=== PATIENT | female | born 1945 | race Caucasian/White ===

== ENCOUNTER 2017-07-20 12:18 | Outpatient (CLI) | payer MEDICARE | END 2017-07-20 12:19 | disposition home or self-care (01) | LOC: BICMAMMO 12:18 | PROVIDERS: ATTEND Internal Medicine | DX: Z12.31 Encounter for screening mammogram for malignant neoplasm of breast (principal); R92.1 Mammographic calcification found on diagnostic imaging of breast; Z80.3 Family history of malignant neoplasm of breast | CPT/HCPCS: 77063; 77067 ==

== ENCOUNTER 2017-07-28 14:05 | Outpatient (CLI) | payer MEDICARE | END 2017-07-28 14:06 | disposition home or self-care (01) | LOC: BICMAMMO 14:05 | PROVIDERS: ATTEND Internal Medicine | DX: R92.1 Mammographic calcification found on diagnostic imaging of breast (principal); Z80.3 Family history of malignant neoplasm of breast | CPT/HCPCS: 77065; G0279 ==

== ENCOUNTER → 2017-08-04 | Day surgery (SDC) | payer MEDICARE ==
--- NOTE | 2017-08-04 11:10 | MMO ---
LEFT BREAST STEREOTACTIC BIOPSY: HISTORY: Left breast calcifications. COMPARISON: None. FINDINGS: Successful left breast stereotactic biopsy. Calcifications are present in the biopsy sample. A post biopsy clip was placed and appears to be appropriately positioned on stereotactic images. Post biop sy two view left breast mammogram demonstrates post biopsy changes and appropriate position of the cl ip. TECHNIQUE: Consent obtained for left breast stereotactic biopsy. The patient was placed in the prone position o n the stereotactic table. Under CC compression, the calcifications were identified. The breast was prepped and draped in a sterile fashion. Lidocaine 1% buffered with sodium bicarbonate was used for local anesthesia. A small dermatotomy was made. Needle position was confirmed pre and post firing. A stereotactic biopsy was performed. A total of six 10 gauge core biopsies were obtained in a 360 d egree fashion. The specimen was radiographed. Calcifications were present. A clip was placed. The clip was documented to be outside the needle. Manual compression was used to achieve hemostasis. T he patient tolerated the procedure well. No immediate or post procedure complications. Post biopsy mammogram was performed and demonstrated appropriate clip position. IMPRESSION: Successful left breast stereotactic biopsy. POS: [facility]
== END ==
LOC: MAMMO 07:34
PROVIDERS: ATTEND Internal Medicine
PROC: 0HBU3ZX Excision of Left Breast, Percutaneous Approach, Diagnostic (ICD-10-PCS; principal; 2017-08-04)
DX: D24.2 Benign neoplasm of left breast (principal)
CPT/HCPCS: 19081; 76098; 88305

== ENCOUNTER 2018-02-02 13:03 | Outpatient (CLI) | payer MEDICARE ==
--- NOTE | 2018-02-02 14:49 | RAD ---
PA AND LATERAL CHEST: History: Cough. FINDINGS: Comparison is made with exam of 02-21-14. The heart size is normal. No focal areas of consolidation, pneumothorax, or pleural effusion is seen. There is mild scarring of the lung bases. 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 IMPRESSION: No acute process. POS: [facility]
== END 2018-02-02 13:04 | disposition home or self-care (01) ==
LOC: BICRAD 13:03
PROVIDERS: ATTEND Allergy & Immunology
DX: R05 Cough (principal)
CPT/HCPCS: 71046

== ENCOUNTER 2018-08-26 13:17 | Outpatient (CLI) | payer MEDICARE ==
--- NOTE | 2018-08-26 14:00 | MMO ---
Bilateral MAMMO Bilat Screen [facility]. CLINICAL HISTORY: Patient is 73 years old and is seen for screening. The patient has the following family history of breast cancer: paternal aunt and niece, at age 42. The patient has no personal history of cancer. The patient has a history of left Stereotatic Biopsy in Aug, 2017 - benign. VIEWS: The views performed were: bilateral craniocaudal with tomosynthesis and bilateral mediolateral oblique with tomosynthesis. FILMS COMPARED: The present examination has been compared to prior imaging studies performed at [facility] on 07/20/2017 and 07/28/2017, and at [facility] on 07/02/2015 and 07/07/2016. MAMMOGRAM FINDINGS: The breasts are almost entirely fat. There is a biopsy clip seen in the left breast. There are no suspicious masses, suspicious calcifications, or new areas of architectural distortion. IMPRESSION: THERE IS NO MAMMOGRAPHIC EVIDENCE OF MALIGNANCY. A ROUTINE FOLLOW-UP MAMMOGRAM IN 1 YEAR IS RECOMMENDED. THE RESULTS OF THIS EXAM WERE SENT TO THE PATIENT. ACR BI-RADS Category 2 - Benign finding MAMMOGRAPHY NOTE: 1. A negative mammogram report should not delay a biopsy if a dominant of clinically suspicious mass is present. 2. Approximately 10% to 15% of breast cancers are not detected by mammography. 3. Adenosis and dense breasts may obscure an underlying neoplasm.
== END 2018-08-26 13:18 | disposition home or self-care (01) ==
LOC: BICMAMMO 13:17
PROVIDERS: ATTEND Internal Medicine
DX: Z12.31 Encounter for screening mammogram for malignant neoplasm of breast (principal); Z80.3 Family history of malignant neoplasm of breast
CPT/HCPCS: 77063; 77067

== ENCOUNTER 2019-08-29 10:47 | Outpatient (CLI) | payer MEDICARE ==
--- NOTE | 2019-08-29 11:13 | MMO ---
Bilateral MAMMO Bilat Screen [facility]. CLINICAL HISTORY: Patient is 74 years old and is seen for screening. The patient has the following family history of breast cancer: paternal aunt and niece, at age 42. The patient has no personal history of cancer. The patient has a history of left Stereotatic Biopsy in Aug, 2017 - benign. VIEWS: The views performed were: bilateral craniocaudal with tomosynthesis and bilateral mediolateral oblique with tomosynthesis. FILMS COMPARED: The present examination has been compared to prior imaging studies performed at [facility] on 07/20/2017, 07/28/2017 and 08/26/2018, and at [facility] on 07/07/2016. This study has been interpreted with the assistance of computer-aided detection. MAMMOGRAM FINDINGS: The breasts are almost entirely fat. Finding 1: There are stable benign appearing calcifications seen in both breasts. Finding 2: There is a biopsy clip seen in the left breast. There are no suspicious masses, suspicious calcifications, or new areas of architectural distortion. IMPRESSION: THERE IS NO MAMMOGRAPHIC EVIDENCE OF MALIGNANCY. A ROUTINE FOLLOW-UP MAMMOGRAM IN 1 YEAR IS RECOMMENDED. THE RESULTS OF THIS EXAM WERE SENT TO THE PATIENT. ACR BI-RADS Category 2 - Benign finding MAMMOGRAPHY NOTE: 1. A negative mammogram report should not delay a biopsy if a dominant of clinically suspicious mass is present. 2. Approximately 10% to 15% of breast cancers are not detected by mammography. 3. Adenosis and dense breasts may obscure an underlying neoplasm. Reported by: MELVI COOPER MD Electonically Signed: [id number]
== END 2019-08-29 10:48 | disposition home or self-care (01) ==
LOC: BICMAMMO 10:47
PROVIDERS: ATTEND Internal Medicine
DX: Z12.31 Encounter for screening mammogram for malignant neoplasm of breast (principal); Z80.3 Family history of malignant neoplasm of breast; Z91.89 Other specified personal risk factors, not elsewhere classified
CPT/HCPCS: 77063; 77067

== ENCOUNTER 2020-07-14 05:44 | Observation (INO) | payer MEDICARE, OTHER ==
[2020-07-14 07:14] LABS: #Lymphocytes 0.6 thou/uL (1.20-3.40); #Monocytes 0.7 thou/uL (0.11-0.59); #Neutrophils 11.8 thou/uL (1.40-6.50); %Basophils 0.1 % (0.0-1.0); %Eosinophils 0.3 % (0.0-10.0); %Lymphocytes 4.7 % (21.0-51.0); %Monocytes 5.4 % (0.0-10.0); %Neutrophils 89.4 % (42.0-75.0); Hemoglobin 13.9 g/dL (12.0-16.0); Mean Corpuscular HGB CONC 33.4 g/dL (32.0-36.0); Mean Corpuscular Hemoglobin 29.1 pg (27.0-31.0); Mean Platelet Volume 6.9 fL (7.4-10.4); Platelet Count 168 thou/uL (130-400); RBC Distribution Width 12.7 % (11.5-14.5); Red Blood Cell (RBC) Count 4.78 mill/uL (4.20-5.40); White Blood Cell (WBC) Count 13.2 thou/uL (4.8-10.8)
[2020-07-14 07:46] LABS: ALT (SGPT) 15 U/L (8-55); AST (SGOT) 19 U/L (5-34); Albumin 4.1 g/dL (3.4-4.8); Alkaline Phosphatase 117 U/L (40-110); Anion Gap 13 mmol/L (10-20); BUN (Urea Nitrogen) 21 mg/dL (9.8-20.1); Bilirubin, Total 0.7 mg/dL (0.2-1.2); Calc. Creatinine Clearance 0 mL/min (70-130); Carbon Dioxide 22 mmol/L (23-31); Chloride 110 mmol/L (98-107); Globulin 2.8 g/dL (2.4-3.5); Glucose 113 mg/dL (83-110); Protein, Total 6.9 g/dL (5.8-8.1); Sodium 141 mmol/L (136-145)
[2020-07-14 10:08] LABS: Bacteria/HPF 1+ HPF (None Seen); Bilirubin Negative (Negative); Blood, Urine Negative (Negative); Clarity Clear (Clear); Glucose, Urine (Dipstick) Normal (Negative); Ketone, Urine Negative (Negative); Leukocyte Negative Leu/uL (Negative); Nitrite Negative (Negative); Protein, Urine (Dipstick) 30 mg/dL (Neg-Trace); RBC/HPF 0-3 HPF (0-3); Specific Gravity, Urine 1.033 (1.002-1.036); Squamous Epithelial 0-3 HPF (0-3); Urobilinogen Normal mg/dL (Less than 2); WBC/HPF 0-3 HPF (0-3)
[2020-07-14] MEDS ORDERED: Cefepime 2 GM VIAL ONE (11:09)
[2020-07-14] MEDS ORDERED: Aspirin Chewable 81 MG TAB ONE (11:09)
[2020-07-14] MEDS ORDERED: Acetaminophen 500 MG TAB ONE (11:09)
[2020-07-14] MEDS ORDERED: Iopamidol-370 76% 500 ML 1 ML ONE (12:02)
[2020-07-14 12:20] LABS: SARS-CoV-2 NAA Rapid Test Not Detected (NotDetected)
[2020-07-14 12:24] LABS: Troponin I Less than 0.010 ng/mL (< 0.028)
[2020-07-14] MEDS ORDERED: Vancomycin 1 GM/200 ML BAG ONE (12:30)
[2020-07-14] MEDS ORDERED: Acetaminophen 650 MG Suppository PR PRN (12:37)
[2020-07-14] MEDS ORDERED: Acetaminophen 325 MG TAB PO PRN (12:37)
[2020-07-14] MEDS ORDERED: guaiFENesin 200 MG TAB PO PRN (12:46)
[2020-07-14 13:06] LABS: SARS-CoV-2 PCR by NAA Not Detected (NotDetected)
[2020-07-14 13:40] VITALS: BMI 39.4
[2020-07-14 14:36] LABS: Troponin I Less than 0.010 ng/mL (< 0.028)
[2020-07-14] MEDS: Famotidine 20 MG TAB PO SCH (20:28)
[2020-07-14] MEDS ORDERED: Cefepime 2 GM in Sodium Chloride 0.9% 100 ML IVPB SCH (23:59)
[2020-07-15 05:32] LABS: #Eosinphils 0.1 thou/uL (0.0-0.7); #Lymphocytes 1.9 thou/uL (1.20-3.40); #Monocytes 0.7 thou/uL (0.11-0.59); #Neutrophils 7.2 thou/uL (1.40-6.50); %Basophils 0.3 % (0.0-1.0); %Lymphocytes 19.3 % (21.0-51.0); %Monocytes 6.9 % (0.0-10.0); %Neutrophils 72.4 % (42.0-75.0); Hemoglobin 12.7 g/dL (12.0-16.0); Mean Corpuscular HGB CONC 33.1 g/dL (32.0-36.0); Mean Corpuscular Hemoglobin 29.1 pg (27.0-31.0); Mean Platelet Volume 7.2 fL (7.4-10.4); Platelet Count 170 thou/uL (130-400); RBC Distribution Width 12.8 % (11.5-14.5); Red Blood Cell (RBC) Count 4.36 mill/uL (4.20-5.40); White Blood Cell (WBC) Count 9.9 thou/uL (4.8-10.8)
[2020-07-15 05:45] LABS: Anion Gap 14 mmol/L (10-20); BUN (Urea Nitrogen) 16 mg/dL (9.8-20.1); Calc. Creatinine Clearance 82 mL/min (70-130); Calcium 8.9 mg/dL (7.8-10.44); Carbon Dioxide 18 mmol/L (23-31); Chloride 111 mmol/L (98-107); Glucose 105 mg/dL (83-110); Sodium 139 mmol/L (136-145)
[2020-07-15] MEDS ORDERED: Non-Formulary Item 1 EACH (Albuterol Sulfate [Proair Digihaler] 90 MCG Aer.Pw.Bas) IH PRN (07:29)
[2020-07-15] MEDS ORDERED: Albuterol 200 PUFF (6.7GM INHALER) INH PRN (07:34)
[2020-07-15 07:58] VITALS: BP 133/73; TEMP 99
[2020-07-15] MEDS: Famotidine 20 MG TAB PO SCH (08:50)
[2020-07-15] MEDS ORDERED: Fluticasone Propionate Nasal Spray 16 gm Bottle NASAL SCH (09:00)
[2020-07-15] MEDS ORDERED: FLUTICASONE PROPIONATE INH SCH (09:00)
[2020-07-15] MEDS ORDERED: Losartan 25 MG TAB PO SCH (09:00)
[2020-07-15] MEDS ORDERED: Non-Formulary Item 1 EACH (Irbesartan [Irbesartan] 300 MG Tablet) PO SCH (09:00)
[2020-07-15] MEDS ORDERED: Vancomycin 1.5 GRAM/300 ML BAG 1.5 GM in Premix Bag 1 BAG IVPB SCH (12:00)
[2020-07-15] MEDS ORDERED: Non-Formulary Item 1 EACH (Dexlansoprazole [Dexilant] 60 MG Cap.Dr.Bp) PO SCH (21:00)
[2020-07-15] MEDS ORDERED: Non-Formulary Item 1 EACH (Rosuvastatin Calcium [Crestor] 40 MG Tablet) PO SCH (21:00)
[2020-07-15] MEDS ORDERED: Rosuvastatin 20 MG TAB PO SCH (21:00)
== END 2020-07-15 09:05 | disposition home or self-care (01) ==
LOC: ERS 05:44 → 2SW 11:12
PROVIDERS: ADMIT Family Medicine; ATTEND Internal Medicine
DX: J06.9 Acute upper respiratory infection, unspecified (principal); B97.89 Other viral agents as the cause of diseases classified elsewhere; I25.10 Atherosclerotic heart disease of native coronary artery without angina pectoris; E78.5 Hyperlipidemia, unspecified; I11.0 Hypertensive heart disease with heart failure; I50.9 Heart failure, unspecified; G47.33 Obstructive sleep apnea (adult) (pediatric); E78.00 Pure hypercholesterolemia, unspecified; E66.9 Obesity, unspecified; Z68.39 Body mass index [BMI] 39.0-39.9, adult; Z87.891 Personal history of nicotine dependence; Z79.899 Other long term (current) drug therapy; Z20.822 Contact with and (suspected) exposure to COVID-19
CPT/HCPCS: 0240U; 71045; 71275; 80048; 80053; 83605; 83630; 83735; 83880 ×2; 84484 ×2; 85025 ×2; 85379; 86140; 87040; 87045; 87046; 87324; 87427 ×2; 87449 ×2; 87804 ×2; 93005; 94660; 96365; 96367; 97139; 99284; G0378 ×3; U0003; U0005; 36415; 81003; 81015; 87635; J0692; J3370; J3490; Q9967

== ENCOUNTER 2020-08-29 12:50 | Outpatient (CLI) | payer MEDICARE | END 2020-08-29 12:51 | disposition home or self-care (01) | LOC: BICMAMMO 12:50 | PROVIDERS: ATTEND Internal Medicine | DX: Z12.31 Encounter for screening mammogram for malignant neoplasm of breast (principal); Z80.3 Family history of malignant neoplasm of breast; Z91.89 Other specified personal risk factors, not elsewhere classified | CPT/HCPCS: 77063; 77067 ==

== ENCOUNTER 2021-09-02 10:57 | Outpatient (CLI) | payer MEDICARE | END 2021-09-02 10:58 | disposition home or self-care (01) | LOC: BICMAMMO 10:57 | PROVIDERS: ATTEND Internal Medicine | DX: Z12.31 Encounter for screening mammogram for malignant neoplasm of breast (principal); Z80.3 Family history of malignant neoplasm of breast; Z91.89 Other specified personal risk factors, not elsewhere classified | CPT/HCPCS: 77063; 77067 ==

== ENCOUNTER 2023-10-01 13:15 | Outpatient (CLI) | payer MEDICARE | END 2023-10-01 13:16 | disposition home or self-care (01) | LOC: BICMAMMO 13:15 | PROVIDERS: ATTEND Internal Medicine | DX: Z12.31 Encounter for screening mammogram for malignant neoplasm of breast (principal); Z80.3 Family history of malignant neoplasm of breast; Z91.89 Other specified personal risk factors, not elsewhere classified | CPT/HCPCS: 77063; 77067 ==

== ENCOUNTER 2025-02-28 09:06 | Outpatient (CLI) | payer MEDICARE | END 2025-02-28 09:07 | disposition home or self-care (01) | LOC: BICMAMMO 09:06 | PROVIDERS: ATTEND Internal Medicine | DX: Z13.820 Encounter for screening for osteoporosis (principal); M81.0 Age-related osteoporosis without current pathological fracture | CPT/HCPCS: 77080 ==